=== PATIENT | female | born 1995 | race Native Hawaiian/Other Pacific Islander ===

== ENCOUNTER 2017-01-05 14:26 | Outpatient (CLI) | payer OTHER ==
[2017-01-05 14:53] LABS: PLATELET COUNT 175 K/uL (152-353)
[2017-01-05 15:35] LABS: POTASSIUM 3.8 mmol/L (3.6-5.2); SODIUM 138 mmol/L (136-145)
== END 2017-01-05 20:04 | disposition home or self-care (01) ==
LOC: LABW 14:26
PROVIDERS: Internal Medicine
DX: R55 Syncope and collapse (principal); E03.8 Other specified hypothyroidism
CPT/HCPCS: 36415; 80053; 84439; 84443; 85027

== ENCOUNTER 2017-01-28 23:41 | Emergency (ER) | payer OTHER ==
[~2017-01-28] VITALS: Ht 162.6 cm; Wt 53.5 kg
[2017-01-28 23:45] VITALS: TEMP 98.6
[2017-01-29 00:13] LABS: PLATELET COUNT 232 K/uL (152-353)
[2017-01-29 01:42] LABS: POTASSIUM 3.7 mmol/L (3.6-5.2); SODIUM 137 mmol/L (136-145)
[2017-01-29 02:20] VITALS: BP 105/59
== END 2017-01-29 02:20 | disposition home or self-care (01) ==
LOC: ED 23:41
DX: J98.01 Acute bronchospasm (principal); F41.0 Panic disorder [episodic paroxysmal anxiety]; R94.5 Abnormal results of liver function studies
CPT/HCPCS: 80053; 80307; 81000; 84443; 85027; 93005; 96365; 99284; G0479; J2060

== ENCOUNTER 2018-02-04 03:16 | Emergency (ER) | payer OTHER ==
[~2018-02-04] VITALS: Ht 162.6 cm; Wt 60.8 kg
[2018-02-04 03:22] VITALS: TEMP 98.6
[2018-02-04 05:22] LABS: PLATELET COUNT 147 K/uL (152-353)
[2018-02-04 05:36] LABS: POTASSIUM 3.4 mmol/L (3.6-5.2)
[2018-02-04 06:40] VITALS: BP 101/60
== END 2018-02-04 06:43 | disposition home or self-care (01) ==
LOC: ED 03:16
DX: R51 Headache (principal); T50.905A Adverse effect of unspecified drugs, medicaments and biological substances, initial encounter; T67.9XXA Effect of heat and light, unspecified, initial encounter; W01.10XA Fall on same level from slipping, tripping and stumbling with subsequent striking against unspecified object, initial encounter
CPT/HCPCS: 36415; 80053; 85027; 99283